=== PATIENT | female | born 1980 | race American Indian/Alaskan Native ===

== ENCOUNTER 2017-03-04 21:49 | Emergency (ER) | payer OTHER ==
--- NOTE | 2017-03-04 23:18 | Emergency Department Report ---
HPI - General Chief Complaint: Extremity Injury, Lower Time Seen by Provider: 03/04/17 23:03 - HPI HPI: Patient is a 36-year-old female presents to ED complaining of right ankle pain times today. She states she was walking earlier today that she slipped and twisted her ankle. Patient states she stated she is experiencing some aching throbbing pain to her right ankle. Patient denies any radiation. Patient denies any pain anywhere else or hitting her head or any loss of consciousness. ED Past Medical Hx - Past Medical History Previous Medical History?: No - Surgical History Past Surgical History?: No - Social History Smoking Status: Never Smoker Substance Use Type: None - Medications Home Medications: Home Medications Medication Instructions Recorded Confirmed Last Taken Type Cyclobenzaprine [Flexeril] 10 mg PO QHS PRN #20 tablet 03/05/17 Unknown Rx Ibuprofen [Motrin] 800 mg PO Q8HR PRN #30 tablet 03/05/17 Unknown Rx ED Review of Systems ROS: Stated complaint: R. ANKLE SPRAIN Other details as noted in HPI Constitutional: denies: chills, fever Eyes: denies: eye pain, eye discharge, vision change ENT: denies: ear pain, throat pain Respiratory: denies: cough, shortness of breath, wheezing Cardiovascular: denies: chest pain, palpitations Endocrine: no symptoms reported Gastrointestinal: denies: abdominal pain, nausea, diarrhea Genitourinary: denies: urgency, dysuria, discharge Musculoskeletal: denies: back pain, joint swelling, arthralgia Skin: denies: rash, lesions Neurological: denies: headache, weakness, paresthesias Psychiatric: denies: anxiety, depression Hematological/Lymphatic: denies: easy bleeding, easy bruising Physical Exam - Physical Exam Vital Signs: Vital Signs 03/04/17 22:33 Temperature 98 F Pulse Rate 94 H Respiratory 18 Rate Blood Pressure 146/91 O2 Sat by Pulse 98 Oximetry Physical Exam: GENERAL: Alert and oriented x3, no apparent distress, Normal Gait, atraumatic. HEAD: Head is normocephalic and a-traumatic. NECK: Supple. Non edematous, No carotid bruits. No lymphadenopathy or thyromegaly. No C-spine tenderness LUNGS: Symetrical with respiration, No wheezing, no rales or crackles, CTAB. HEART: S1, S2 present, regular rate and rhythm without murmur, no rubs, no gallops. Non tender to palpation BACK: Full range of motion, no spinal tenderness, nontender to palpation. EXTREMITIES/MUSCULOSKELETAL: No cyanosis, clubbing, rash, lesions or edema. Full ROM bilaterally. Pedal Pulses 2+ bilaterally. Right lateral aspect of the right ankle mildly swollen, tender to palpation, pain with plantar flexion of the foot. No bleeding, no erythema, no dislocation or deformity seen NEUROLOGIC: The patient is cooperative with no focal neurologic deficits. Normal speech. Normal sensation in bilateral upper and lower extremities, No loss of sensation, SKIN: Warm and dry, No lesions, No ulceration or induration present. ED Course Vital Signs 03/04/17 22:33 Temperature 98 F Pulse Rate 94 H Respiratory 18 Rate Blood Pressure 146/91 O2 Sat by Pulse 98 Oximetry ED Medical Decision Making - Radiology Data Radiology results: report reviewed, image reviewed FINAL REPORT EXAM: XR ANKLE 3+V RT HISTORY: sprain,ro fx rt ankle TECHNIQUE: Three views right ankle PRIORS: None. FINDINGS: No fracture is identified. No dislocation seen. Ankle mortise is intact no evidence of joint space widening. No erosive or degenerative changes are identified. No evidence of joint effusion. IMPRESSION: Negative ankle series There is marked lateral soft tissue swelling Transcribed By: AYANA Dictated By: STEVE PETERSON MD Electronically Authenticated By: STEVE PETERSON MD Signed Date/Time: 03/04/171933 - Medical Decision Making 36-year-old female presents to ED with right ankle sprain ED course: Patient received Motrin and flexeril in ED Ankle x-rays taken, ankle x-rays shows. I discussed findings with the patient. I discussed the patient Rice protocol I discussed the patient keep ankle rested iced she does activities. vital signs are normal patient is in no acute distress Patient put in a ANKLE STIRRUP Vital signs are normal patient is in no acute distress. Discussed with medication of Flexeril and Motrin. Discussed Flexeril as drowsiness accident take only at bedtime not while driving with any alcohol Critical care attestation.: If time is entered above; I have spent that time in minutes in the direct care of this critically ill patient, excluding procedure time. ED Disposition Clinical Impression: Ankle sprain Qualifiers: Encounter type: initial encounter Involved ligament of ankle: other ligament Laterality: right Qualified Code(s): S93.491A - Sprain of other ligament of right ankle, initial encounter Disposition: TO HOME OR SELFCARE Is pt being admited?: No Does the pt Need Aspirin: No Condition: Stable Instructions: Ankle Sprain (ED), Ankle Stirrup Splint (ED), Ankle Exercises ( GEN) Additional Instructions: uSE YOUR ankle air stirrup indicated Follow-up she primary care physician. Continue to rest, ice, keep compression and elevate the ankle daily Prescriptions: Cyclobenzaprine [Flexeril] 10 mg PO QHS PRN #20 tablet PRN Reason: Muscle Spasm Ibuprofen [Motrin] 800 mg PO Q8HR PRN #30 tablet PRN Reason: Pain Referrals: [facility] [Outside] - 3-5 Days [facility] [Outside] - 3-5 Days Forms: Work/School Release Form(ED), Accompanied Note Time of Disposition: 00:15
--- NOTE | 2017-03-04 23:52 | XRay Report ---
FINAL REPORT EXAM: XR ANKLE 3+V RT HISTORY: sprain,ro fx rt ankle TECHNIQUE: Three views right ankle PRIORS: None. FINDINGS: No fracture is identified. No dislocation seen. Ankle mortise is intact no evidence of joint space widening. No erosive or degenerative changes are identified. No evidence of joint effusion. IMPRESSION: Negative ankle series There is marked lateral soft tissue swelling
[2017-03-05] MEDS ORDERED: FLEXERIL PO ONE (00:15)
[2017-03-05] MEDS ORDERED: MOTRIN PO ONE (00:15)
[2017-03-05 00:30] VITALS: BP 142/86
== END 2017-03-05 00:43 | disposition home or self-care (01) ==
LOC: ED 21:49
DX: S93.491A Sprain of other ligament of right ankle, initial encounter (principal); W01.0XXA Fall on same level from slipping, tripping and stumbling without subsequent striking against object, initial encounter; Y93.01 Activity, walking, marching and hiking; Y92.89 Other specified places as the place of occurrence of the external cause; Y99.8 Other external cause status